=== PATIENT | male | born 1950 | race Caucasian/White ===

== ENCOUNTER → 2016-08-21 | Outpatient (CLI) | payer MEDICARE, BC | END | disposition home or self-care (01) | LOC: PCVCIMAG 08:14 | PROVIDERS: ATTEND Nuclear Medicine Nuclear Cardiology | DX: I73.9 Peripheral vascular disease, unspecified (principal); Z95.820 Peripheral vascular angioplasty status with implants and grafts | CPT/HCPCS: 93923; 93925; 93978; 93924 ==

== ENCOUNTER → 2016-08-26 | Outpatient (CLI) | payer MEDICARE, BC | END | disposition home or self-care (01) | LOC: PCVCCLINIC 15:21 | PROVIDERS: ATTEND Nuclear Medicine Nuclear Cardiology | DX: I73.9 Peripheral vascular disease, unspecified (principal); I25.10 Atherosclerotic heart disease of native coronary artery without angina pectoris; I77.9 Disorder of arteries and arterioles, unspecified; I10 Essential (primary) hypertension; E78.00 Pure hypercholesterolemia, unspecified | CPT/HCPCS: G0463 ==

== ENCOUNTER → 2016-09-16 | Outpatient (CLI) | payer MEDICARE, BC | END | disposition home or self-care (01) | LOC: PCVCCLINIC 12:59 | PROVIDERS: ATTEND Internal Medicine Cardiovascular Disease | DX: E78.00 Pure hypercholesterolemia, unspecified (principal); I25.10 Atherosclerotic heart disease of native coronary artery without angina pectoris; I73.9 Peripheral vascular disease, unspecified; I77.9 Disorder of arteries and arterioles, unspecified; I10 Essential (primary) hypertension; R53.83 Other fatigue | CPT/HCPCS: 93005; G0463 ==

== ENCOUNTER → 2016-09-22 | Outpatient (CLI) | payer MEDICARE, BC ==
[~2016-09-22] MED LIST: CEFAZOLIN 2GM PREMIX 50 ML IV ONE; DIAZEPAM 10 MG TABLET. ONE; EPTIFIBATIDE BOLUS 2,000 MCG/ML 10ML VIAL. IV ONE; FENTANYL PF 100 MCG/2 ML VIAL. ONE; HEPARIN SODIUM 5,000 UNIT/ML VIAL. ONE; HEPARIN for ARTERIAL LINE 1,500 ML ONE; IODIXANOL 270 MG/ML 100 ML VIAL. ONE; IOHEXOL 350 MG/ML 100 ML VIAL. ONE; IV NORMAL SALINE 1000ML BAG 1,000 ML ONE; IV NORMAL SALINE 500ML BAG 500 ML ONE; LIDOCAINE 1% Multi-Dose 20 ML VIAL. ONE; MIDAZOLAM HCL/PF 2 MG/2 ML VIAL. ONE; hydrALAZINE 20 MG/ML VIAL. ONE
== END | disposition home or self-care (01) ==
LOC: PCVCINTER 09:16
PROVIDERS: ATTEND Nuclear Medicine Nuclear Cardiology
DX: I70.203 Unspecified atherosclerosis of native arteries of extremities, bilateral legs (principal); I74.3 Embolism and thrombosis of arteries of the lower extremities; I70.0 Atherosclerosis of aorta; I15.0 Renovascular hypertension; I70.1 Atherosclerosis of renal artery
CPT/HCPCS: 36252; 37186; 37220; 37222; 37225; 75716; 76937; 93458; C1725; C1751; C1757; C1760; C1769; C1885; C1894; C2623; J0360; J0690; J1644; J2250; J3010; J7030; J7040; Q9967; J1327

== ENCOUNTER → 2016-11-12 | Outpatient (CLI) | payer MEDICARE, BC ==
[~2016-11-12] MED LIST changes: -CEFAZOLIN 2GM PREMIX 50 ML IV ONE; -EPTIFIBATIDE BOLUS 2,000 MCG/ML 10ML VIAL. IV ONE; -FENTANYL PF 100 MCG/2 ML VIAL. ONE; +HEPARIN SODIUM 5,000 UNIT/ML VIAL for PCVC. ONE; -HEPARIN SODIUM 5,000 UNIT/ML VIAL. ONE; -HEPARIN for ARTERIAL LINE 1,500 ML ONE; +HYDROcodone/APAP 5/325MG 1 TAB TABLET ONE; -IOHEXOL 350 MG/ML 100 ML VIAL. ONE; +IV NORMAL SALINE 50ML 50 ML ONE; +ceFAZolin SODIUM 1 GM VIAL ONE; +fentaNYL PF VIAL 100 MCG/2 ML VIAL ONE
== END | disposition home or self-care (01) ==
LOC: PCVCINTER 07:00
PROVIDERS: ATTEND Nuclear Medicine Nuclear Cardiology
DX: I12.9 Hypertensive chronic kidney disease with stage 1 through stage 4 chronic kidney disease, or unspecified chronic kidney disease (principal); N18.9 Chronic kidney disease, unspecified; I25.10 Atherosclerotic heart disease of native coronary artery without angina pectoris; I73.9 Peripheral vascular disease, unspecified; E78.00 Pure hypercholesterolemia, unspecified; Z88.6 Allergy status to analgesic agent; Z82.49 Family history of ischemic heart disease and other diseases of the circulatory system
CPT/HCPCS: 37186; 37227; 76937; 99152; 99153; C1725; C1751; C1757; C1760; C1769; C1885; C1894; J0690; J1644; J2250; J3010; J7030; J7040; J0360

== ENCOUNTER → 2017-03-05 | Outpatient (CLI) | payer MEDICARE, BC ==
--- NOTE | 2017-03-05 16:45 | PCVCIMAG ---
EXAM: BILATERAL CAROTID DUPLEX INDICATION: Carotid Occlusive Disease. Previous right carotid endarterectomy. FINDINGS: Doppler Measurements (centimeters per second): RIGHT: Peak CCA-87, Peak ECA-194, Diastolic ICA-36, Peak ICA-180, ICA/CCA Ratio-2.1. LEFT: Peak CCA-104, Peak ECA-438, Diastolic ICA-27, Peak ICA-151, ICA/CCA Ratio-1.5. RIGHT CAROTID: The carotid bulb has moderate plaque. The proximal internal carotid artery shows 60-70% stenosis. The common carotid artery shows no significant stenosis. The external carotid artery shows 60% stenosis. LEFT CAROTID: The carotid bulb has moderately severe plaque. The proximal internal carotid artery shows 40-50% stenosis. The common carotid artery shows no significant stenosis. The external carotid artery shows 90% stenosis. Antegrade flow in both vertebral arteries. IMPRESSION: 60-70% stenosis of the right internal carotid artery with moderate plaque. 40-50% stenosis of the left internal carotid artery with moderately severe plaque. Incidental note is made of 70% proximal right subclavian artery stenosis. LOC:OFFICE
--- NOTE | 2017-03-05 17:03 | PCVCIMAG ---
EXAM: BILATERAL LOWER EXTREMITY ARTERIAL DUPLEX INDICATION: Peripheral Arterial Disease. Leg pain. FINDINGS: Right Leg: Satisfactory arterial waveforms throughout the common/profunda/superficial femoral, popliteal, anterior tibial, peroneal, and posterior tibial arteries. No flow limiting stenosis seen. Previous stent graft throughout the superficial femoral artery maintaining good patency. Left Leg: Satisfactory arterial waveforms in the common and profunda femoral artery. Mild velocity elevation proximal superficial femoral artery of 284 cm/s within the proximal portion of a prior stent consistent with 50-60% stenosis. Mid and distal superficial femoral artery maintaining good patency as is the popliteal artery stent. The anterior tibial, peroneal, posterior tibial arteries are patent. IMPRESSION: No flow limiting stenosis in the right lower extremity. Previous right superficial femoral artery stent graft maintaining good patency. 50-60% restenosis proximal left superficial femoral artery within prior stent not felt to be critically flow-limiting. Remainder of the superficial femoral artery and left popliteal artery stent maintaining satisfactory patency. LOC:OFFICE
--- NOTE | 2017-03-05 17:07 | PCVCIMAG ---
EXAM: NONINVASIVE ARTERIAL EXAMINATION OF BOTH LOWER EXTREMITIES INCLUDING PRE AND POST EXERCISE PRESSURE MEASUREMENTS AND DOPPLER WAVEFORMS INDICATION: Peripheral Arterial Disease. Leg pain. FINDINGS: Right Brachial: 141 mm Hg. Right Dorsalis Pedis: 156 mm Hg. Right Posterior Tibial: 145 mm Hg. Right CARRILLO = 1.03. Left Brachial: 152 mm Hg. Left Dorsalis Pedis: 145 mm Hg. Left Posterior Tibial: 162 mm Hg. Left CARRILLO = 1.07. Post Exercise: Left Brachial 165 mm Hg. Right Dorsalis Pedis: 100 mm Hg. Left Posterior Tibial: 143 mm Hg. Right CARRILLO = 0.61. Left CARRILLO = 0.87. IMPRESSION: No resting ischemia in the right lower extremity. Mild-moderate exercise induced ischemia in the right lower extremity. No resting ischemia in the left lower extremity. No exercise induced ischemia in the left lower extremity. LOC:OFFICE
== END | disposition home or self-care (01) ==
LOC: PCVCIMAG 08:51
PROVIDERS: ATTEND Internal Medicine Cardiovascular Disease
DX: I65.23 Occlusion and stenosis of bilateral carotid arteries (principal); I70.202 Unspecified atherosclerosis of native arteries of extremities, left leg; I10 Essential (primary) hypertension; E78.00 Pure hypercholesterolemia, unspecified; Z95.828 Presence of other vascular implants and grafts
CPT/HCPCS: 93880; 93923; 93925; 93924

== ENCOUNTER → 2017-03-12 | Outpatient (CLI) | payer MEDICARE, BC | END | disposition home or self-care (01) | LOC: PCVCCLINIC 14:25 | PROVIDERS: ATTEND Nuclear Medicine Nuclear Cardiology | DX: I73.9 Peripheral vascular disease, unspecified (principal); I25.10 Atherosclerotic heart disease of native coronary artery without angina pectoris; I77.9 Disorder of arteries and arterioles, unspecified; I10 Essential (primary) hypertension; E78.00 Pure hypercholesterolemia, unspecified; M54.18 Radiculopathy, sacral and sacrococcygeal region; Z98.890 Other specified postprocedural states; Z87.891 Personal history of nicotine dependence; Z79.899 Other long term (current) drug therapy; Z88.8 Allergy status to other drugs, medicaments and biological substances | CPT/HCPCS: G0463 ==

== ENCOUNTER → 2017-06-16 | Outpatient (CLI) | payer MEDICARE, BC | END | disposition home or self-care (01) | LOC: PCVCIMAG 08-19 10:43 | DX: I73.9 Peripheral vascular disease, unspecified (principal); I25.10 Atherosclerotic heart disease of native coronary artery without angina pectoris; I77.9 Disorder of arteries and arterioles, unspecified; I10 Essential (primary) hypertension; E78.00 Pure hypercholesterolemia, unspecified; M54.18 Radiculopathy, sacral and sacrococcygeal region; Z87.891 Personal history of nicotine dependence | CPT/HCPCS: 93923; 93925; G0463 ==

== ENCOUNTER → 2017-08-19 | Outpatient (CLI) | payer MEDICARE, BC | END | disposition home or self-care (01) | LOC: PCVCIMAG 10:59 | DX: I73.9 Peripheral vascular disease, unspecified (principal); I25.10 Atherosclerotic heart disease of native coronary artery without angina pectoris; E78.00 Pure hypercholesterolemia, unspecified; I10 Essential (primary) hypertension; I77.9 Disorder of arteries and arterioles, unspecified; Z87.891 Personal history of nicotine dependence; Z79.899 Other long term (current) drug therapy | CPT/HCPCS: 80061; 93005; 93925; G0463 ==

== ENCOUNTER → 2018-01-19 | Outpatient (CLI) | payer MEDICARE, BC | END | disposition home or self-care (01) | LOC: PCVCIMAG 15:36 | DX: I70.201 Unspecified atherosclerosis of native arteries of extremities, right leg (principal); I77.9 Disorder of arteries and arterioles, unspecified; I25.10 Atherosclerotic heart disease of native coronary artery without angina pectoris; I10 Essential (primary) hypertension; E78.00 Pure hypercholesterolemia, unspecified; Z88.8 Allergy status to other drugs, medicaments and biological substances; Z79.899 Other long term (current) drug therapy; Z87.891 Personal history of nicotine dependence | CPT/HCPCS: 93925; G0463 ==

== ENCOUNTER → 2018-02-18 | Outpatient (CLI) | payer MEDICARE, BC ==
--- NOTE | 2018-02-18 13:52 | PCVCIMAG ---
EXAM: BILATERAL CAROTID DUPLEX INDICATION: Carotid Occlusive Disease. FINDINGS: Doppler Measurements (centimeters per second): RIGHT: Peak CCA-94, Peak ECA-239, Diastolic ICA-35, Peak ICA-169, ICA/CCA Ratio-1.8. LEFT: Peak CCA-98, Peak ECA-334, Diastolic ICA-34, Peak ICA-158, ICA/CCA Ratio-1.6. RIGHT CAROTID: The carotid bulb has moderate plaque. The proximal internal carotid artery shows 60-70% stenosis. The common carotid artery shows no significant stenosis. The external carotid artery shows 70% stenosis. LEFT CAROTID: The carotid bulb has moderately severe plaque. The proximal internal carotid artery shows 50% stenosis. The common carotid artery shows no significant stenosis. The external carotid artery shows 90% stenosis. Antegrade flow in both vertebral arteries. IMPRESSION: 60-70% stenosis of the right internal carotid artery with moderate plaque. 50% stenosis of the left internal carotid artery with moderately severe plaque. LOC:[place] [id number]
--- NOTE | 2018-02-18 16:32 | PCVCIMAG ---
APPROVED REPORT Study performed: 02/18/2018 11:37:01 Exam: Stress Echocardiogram Indication: CAD , Hyperlipidemia, Hypertension Patient Location: Echo lab Stress Nurse: Lexus Hughes RN Room #: 2 Status: routine Ht: 5 ft 9 in HR: 58 bpm BP: 170/76 mmHg Rhythm: Sinus Bradycardia Medical History Medical History: CAD non obstructive, HTN, Hyperlipidemia Cardiac Risk Factors: HTN, Hyperlipidemia, Tobacco History (Former) Previous Cardiac Procedures: cath Pretest Chest Pain Characteristics: No chest pain Exercise History: Physically active Procedure The patient underwent an Exercise Stress Test using the Lalo Protocol. Blood pressure, heart rate, and EKG were monitored. An Echocardiogram was performed by photogrammetric technician in four stages in quad fashion. At peak stress, four selected images were obtained and placed side by side with resting images for comparison. Stress Test Details Stress Test: Exercise stress testing was performed using a Lalo protocol. HR Resting HR: 58 bpmMax Heart Rate (APMHR): 153 bpm Max HR Achieved: 142 bpmTarget HR (85% APMHR): 130 bpm % of APMHR: 92 Recovery HR: 86 bpm HR response to stress: Normal HR response to stress BP Resting BP: 170/76 mmHg Max BP: 184/80 mmHg Recovery BP: 156/84 mmHg ECG Resting ECG: Sinus Bradycardia Stress ECG: Sinus Rhythm ST Change: Non-ischemic Arrhythmia: Frequent PACs,short runs PACs, rare PVCs Recovery ECG: Sinus Rhythm Recovery ST Change: Non-ischemic Recovery Arrhythmia: APC Clinical Reason for Termination: Maximal effort Stress Symptoms: Leg Fatigue and cramping Exercise duration: 8 min 01 sec Highest Stage Achieved: Stage 3: 3.4 mph at 14% grade. Exercise capacity: 10.4 METs Overall Exercise Capacity for Age: Average Scale: Active Angina Score: None No complications. Stress ECG Conclusion The patient exercised according to the LALO protocol for 8:01 mins; achieving a work level of 10.4 METS. The resting heart rate of 58 bpm gayathri to a maximum heart rate of 142 bpm. This value represent 92% of the maximal, age-predicted heart rate. The resting blood pressure of 170/76 mmHg, gayathri to a maximum blood pressure of 186/84 mmHg. The exercise test was stopped due to fatigue and leg cramps . Pre-Stress Echo The resting Echocardiogram showed normal left ventricular contractility with an estimated Ejection Fraction of about 55-60%. Normal wall motion in all segments on baseline images. Post-Stress Echo The stress Echocardiogram showed normal left ventricular contractility with an estimated Ejection Fraction of about 65-70%. Normal augmentation of wall motion in all segments on post stress images. Clinical No clinical or ECG evidence for ischemia. Conclusion Clinical Response: Non-ischemic Exercise Capacity: Average Stress ECG Response: Non-ischemic Stress Echo Images: Non-ischemic No clinical, EKG or echocardiographic evidence for ischemia. No echocardiographic evidence for exercise induced ischemia. Normal stress echocardiogram with maximal exercise stress. <Conclusion> No clinical, EKG or echocardiographic evidence for ischemia. No echocardiographic evidence for exercise induced ischemia. Normal stress echocardiogram with maximal exercise stress.
--- NOTE | 2018-02-18 20:12 | PCVCIMAG ---
EXAM: VENOUS DUPLEX RIGHT UPPER EXTREMITY INDICATION: Subclavian artery stenosis. FINDINGS: Right arm: Increased systolic velocity of 464 cm/s in the origin of the right subclavian artery consistent with patient's known 80% stenosis. Fortunately the systolic pressures in both arms are symmetric. The mid and distal subclavian artery as well as the axillary artery, brachial artery, radial artery, and ulnar arteries show satisfactory patency. IMPRESSION: Unchanged 80% stenosis of the origin of the right subclavian artery is not readily amenable to percutaneous revascularization. Little overall change since February 2017. LOC:[id number]
== END | disposition home or self-care (01) ==
LOC: PCVCIMAG 13:52
PROVIDERS: ATTEND Internal Medicine Cardiovascular Disease
DX: I65.23 Occlusion and stenosis of bilateral carotid arteries (principal); I25.10 Atherosclerotic heart disease of native coronary artery without angina pectoris; I10 Essential (primary) hypertension; E78.5 Hyperlipidemia, unspecified; I70.8 Atherosclerosis of other arteries
CPT/HCPCS: 93325; 93351; 93880; 93931

== ENCOUNTER → 2018-09-20 | Outpatient (CLI) | payer BC, MEDICARE, OTHER ==
--- NOTE | 2018-09-20 15:01 | PCVCIMAG ---
EXAM: BILATERAL CAROTID DUPLEX INDICATION: Carotid Occlusive Disease. FINDINGS: Doppler Measurements (centimeters per second): RIGHT: Peak CCA-104, Peak ECA-232, Diastolic ICA-29, Peak ICA-168, ICA/CCA Ratio -1.6. LEFT: Peak CCA-102, Peak ECA-444, Diastolic ICA-15, Peak ICA-128, ICA/CCA Ratio- 1.3. RIGHT CAROTID: The carotid bulb has moderate plaque. The proximal internal carotid artery shows 60-70% stenosis. The common carotid artery shows no significant stenosis. The external carotid artery shows 65% stenosis. LEFT CAROTID: The carotid bulb has moderately severe plaque. The proximal internal carotid artery shows 40% stenosis. The common carotid artery shows no significant stenosis. The external carotid artery shows 90% stenosis. Antegrade flow in both vertebral arteries. IMPRESSION: 60-70% stenosis of the right internal carotid artery with moderate plaque. 40% stenosis of the left internal carotid artery with moderate to severe plaque. Little overall change since January 2018 study. MTDD
--- NOTE | 2018-09-20 17:09 | PCVCIMAG ---
EXAM: NONINVASIVE ARTERIAL EXAMINATION OF BOTH LOWER EXTREMITIES INCLUDING PRE AND POST EXERCISE PRESSURE MEASUREMENTS AND DOPPLER WAVEFORMS INDICATION: Peripheral Arterial Disease. Leg pain. FINDINGS: Right Brachial: 149 mm Hg. Right Dorsalis Pedis: 130 mm Hg. Right Posterior Tibial: 137 mm Hg. Right CARRILLO = 0.92. Left Brachial: 145 mm Hg. Left Dorsalis Pedis: 150 mm Hg. Left Posterior Tibial: 156 mm Hg. Left CARRILLO = 1.05. Post Exercise: Right Brachial 165 mm Hg. Right Posterior Tibial: 59 mm Hg. Left Posterior Tibial: 145 mm Hg. Right CARRILLO = 0.36. Left CARRILLO = 0.88. IMPRESSION: No resting ischemia in the right lower extremity. Severe exercise induced ischemia in the right lower extremity. No resting ischemia in the left lower extremity. No exercise induced ischemia in the left lower extremity. LOC:[id number]
--- NOTE | 2018-09-20 17:15 | PCVCIMAG ---
EXAM: BILATERAL LOWER EXTREMITY ARTERIAL DUPLEX INDICATION: Peripheral Arterial Disease. Leg pain. FINDINGS: Right Leg: Common femoral and profunda femoral arteries are patent. Superficial femoral and popliteal artery is patent. Previous stent graft throughout the superficial femoral artery and popliteal artery maintaining satisfactory patency. Anterior tibial, peroneal, and posterior tibial arteries are patent. Left Leg: Common femoral artery is patent. Mild stenosis profunda femoral artery. Increased systolic velocity 242 cm/s proximal superficial femoral artery consistent with 40-50% restenosis within prior stent graft not felt be flow-limiting. Remainder of stent/graft throughout the superficial femoral artery and popliteal artery maintaining good patency. Peroneal and posterior tibial arteries are patent. 90% stenosis proximal anterior tibial artery. IMPRESSION: No flow limiting stenosis in the right lower extremity. Previous stent graft throughout the superficial femoral artery and upper popliteal artery maintaining satisfactory patency. 40-50% restenosis proximal left superficial femoral artery within prior stent graft not flow-limiting. 90% stenosis proximal left anterior tibial artery. No change since prior study dated December 2017. LOC:[id number]
== END | disposition home or self-care (01) ==
LOC: PCVCIMAG 12:50
PROVIDERS: ATTEND Internal Medicine Cardiovascular Disease
DX: I65.23 Occlusion and stenosis of bilateral carotid arteries (principal); I73.9 Peripheral vascular disease, unspecified; I10 Essential (primary) hypertension; E78.00 Pure hypercholesterolemia, unspecified; I77.9 Disorder of arteries and arterioles, unspecified
CPT/HCPCS: 93880; 93924; 93925

== ENCOUNTER → 2019-02-23 | Outpatient (CLI) | payer OTHER | END | disposition home or self-care (01) | LOC: PCVCCLINIC 13:50 | PROVIDERS: ATTEND Internal Medicine Cardiovascular Disease | DX: I25.10 Atherosclerotic heart disease of native coronary artery without angina pectoris (principal); E78.00 Pure hypercholesterolemia, unspecified; I73.9 Peripheral vascular disease, unspecified; I10 Essential (primary) hypertension; I65.23 Occlusion and stenosis of bilateral carotid arteries; D68.59 Other primary thrombophilia; M25.551 Pain in right hip; M25.552 Pain in left hip; Z87.891 Personal history of nicotine dependence | CPT/HCPCS: 36415; 80061; 93005; G0463 ==

== ENCOUNTER → 2019-03-07 | Outpatient (CLI) | payer OTHER ==
--- NOTE | 2019-03-07 16:04 | PCVCIMAG ---
EXAM: AORTOILIAC DUPLEX INDICATION: Peripheral arterial disease FINDINGS: AORTA: Suprarenal aorta measures maximum diameter of 2.5 cm. There is not a fusiform infrarenal aortic aneurysm. The infrarenal aorta measures maximum diameter of 2.1 cm. No aortic stenosis. RIGHT COMMON ILIAC ARTERY: Maximum diameter is 1.3 cm. Mild stenosis. RIGHT EXTERNAL ILIAC ARTERY: No significant stenosis. LEFT COMMON ILIAC ARTERY: Maximum diameter is 1.3 cm. No significant stenosis. LEFT EXTERNAL ILIAC ARTERY: No significant stenosis. IMPRESSION: No abdominal aortic aneurysm. Mild stenosis proximal right common iliac artery within prior stent. No significant aortoiliac stenosis seen. LOC:[id number]
--- NOTE | 2019-03-07 16:10 | PCVCIMAG ---
EXAM: BILATERAL LOWER EXTREMITY ARTERIAL DUPLEX INDICATION: Peripheral Arterial Disease. Leg pain. FINDINGS: Right Leg: Common femoral and femoral arteries show adequate patency. Previous stent graft throughout the superficial femoral artery and popliteal artery maintaining adequate patency. The anterior tibial, peroneal, and posterior tibial arteries are patent. Left Leg: Common femoral artery is patent. Mild stenosis origin profunda femoral artery. 40-50% stenosis origin superficial femoral artery is unchanged. Adequate patency throughout previous stent graft in the superficial femoral artery and popliteal artery. Peroneal and posterior tibial arteries are patent. Unchanged 90% stenosis proximal left anterior tibial artery. IMPRESSION: No flow limiting stenosis in the right lower extremity. Previous stent graft throughout the right superficial femoral artery and upper popliteal artery maintaining satisfactory patency. 40-50% restenosis proximal left superficial femoral artery. Previous stent graft throughout the left superficial femoral artery and upper popliteal artery otherwise maintaining adequate patency. Unchanged 90% stenosis proximal left anterior tibial artery. Little overall change since September 2018 study. LOC:[id number]
== END | disposition home or self-care (01) ==
LOC: PCVCIMAG 13:03
PROVIDERS: ATTEND Internal Medicine Cardiovascular Disease
DX: I65.21 Occlusion and stenosis of right carotid artery (principal); E78.00 Pure hypercholesterolemia, unspecified
CPT/HCPCS: 93925; 93978